=== PATIENT | male | born 1975 | race Caucasian/White ===

== ENCOUNTER → 2021-11-24 | Outpatient (CLI) | payer OTHER | LOC: SLEEP 09:19 | DX: G47.31 Primary central sleep apnea (principal); G47.33 Obstructive sleep apnea (adult) (pediatric) | CPT/HCPCS: 95811 ==

== ENCOUNTER → 2021-12-11 | Outpatient (CLI) | payer OTHER | LOC: HEART 5 13:30 | DX: G47.39 Other sleep apnea (principal); I34.0 Nonrheumatic mitral (valve) insufficiency | CPT/HCPCS: 93306 ==